=== PATIENT | female | born 1990 | race Caucasian/White ===

== ENCOUNTER → 2018-05-08 | Outpatient (CLI) | payer BC | LOC: LABNPT 10:32 | PROVIDERS: ATTEND Obstetrics & Gynecology | DX: O14.03 Mild to moderate pre-eclampsia, third trimester (principal) | CPT/HCPCS: 82570; 84156 ==

== ENCOUNTER 2018-05-13 04:51 | Inpatient (IN) | payer BC ==
[2018-05-13] VITALS (50 sets, daily range): BP systolic 121–189; BP diastolic 57–119
[~2018-05-13] VITALS: Ht 165.1 cm; Wt 103.0 kg
--- NOTE | 2018-05-13 04:50 | NUR ---
JONATHAN VEE presented to unit via wheelchair from ED, accompanied by s/o, with c/o CONTRACTIONS. JONATHAN VEE weighed, gowned, voided, and to bed. EFHM and TOCO applied, VS taken. JONATHAN VEE oriented to bed controls, call light, TV, heat, and A/C controls.
[2018-05-13] MEDS ORDERED: D5 LR IV SOLUTION 1,000 ML IV ONE (05:04)
[2018-05-13] MEDS ORDERED: D5 LR IV SOLUTION 1,000 ML IV SCH (05:10)
--- OUTSIDE RECORDS SUMMARY | 2018-05-13 05:21 | XMS REPORT ---
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 Name Role Phone SUSY CHRIS Unavailable PROBLEMS Unknown Problems ALLERGIES No Information ENCOUNTERS Encounter Location Date Diagnosis [facility] [address] [facility] [id number] [address] Mar, Encounter for immunization Z23 IMMUNIZATIONS Vaccine Route Administration Date Status TDAP (BOOSTRIX) IM Intramuscular Apr 03, 2018 Administered SOCIAL HISTORY Never Assessed REASON FOR VISIT TDaP immunization Leo Parker PLAN OF CARE VITAL SIGNS MEDICATIONS Unknown Medications RESULTS No Results PROCEDURES Procedure Date Ordered Result Body Site TDAP (BOOSTRIX) Apr 03, 2018 SINGLE IMMUNIZATION ADMIN Apr 03, 2018 INSTRUCTIONS MEDICATIONS ADMINISTERED No Known Medications
--- OUTSIDE RECORDS SUMMARY | 2018-05-13 05:21 | XMS REPORT ---
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 Name Role Phone SUSY CHRIS Unavailable PROBLEMS Unknown Problems ALLERGIES No Information ENCOUNTERS Encounter Location Date Diagnosis [facility] [address] [facility] [id number] [address] Mar, [facility] [address] [facility] [id number] [address] Mar, Encounter for immunization Z23 IMMUNIZATIONS No Known Immunizations SOCIAL HISTORY Never Assessed REASON FOR VISIT Pt has a red swollen area on the right deltoid where she received her TDAP injection, told pt to ice the area. Hans an outline around the area and told pt to monitor the area and call me if she started developing a fever or the redness extents outside the outlined area, Pt voiced understanding- Lata Stephens RN PLAN OF CARE VITAL SIGNS MEDICATIONS Unknown Medications RESULTS No Results PROCEDURES No Known procedures INSTRUCTIONS MEDICATIONS ADMINISTERED No Known Medications
[2018-05-13 05:44] LABS: BASOPHILS % (AUTO) 0 % (0-10); EOSINOPHILS # (AUTO) 0.1 10^3/uL (0.0-0.3); EOSINOPHILS % (AUTO) 1 % (0-10); HEMATOCRIT 37 % (35-52); HEMOGLOBIN 12.3 G/DL (11.5-16.0); LYMPHOCYTES # (AUTO) 1.8 X 10^3 (1.0-4.0); LYMPHOCYTES % (AUTO) 18 % (12-44); MEAN CORPUSCULAR HEMOGLOBIN 30 PG (25-34); MEAN CORPUSCULAR HGB CONC 33 G/DL (32-36); MEAN CORPUSCULAR VOLUME 89 FL (80-99); MEAN PLATELET VOLUME 10.7 FL (7.4-10.4); MONOCYTES # (AUTO) 0.8 X 10^3 (0.0-1.0); MONOCYTES % (AUTO) 8 % (0-12); NEUTROPHILS # (AUTO) 7.2 X 10^3 (1.8-7.8); NEUTROPHILS % (AUTO) 73 % (42-75); PLATELET COUNT 204 10^3/uL (130-400); RED BLOOD COUNT 4.16 10^6/uL (4.35-5.85); RED CELL DISTRIBUTION WIDTH 15.1 % (10.0-14.5); WHITE BLOOD COUNT 9.9 10^3/uL (4.3-11.0)
[2018-05-13] MEDS ORDERED: CATHETER FLUSH 10 ML SYR IV SCH (06:00)
[2018-05-13] MEDS ORDERED: LIDOCAINE/EPI 2% 1:200,00 (XYLOCAINE) 10 ML VIAL ONE (06:50)
[2018-05-13] MEDS ORDERED: OXYTOCIN/NORMAL SALINE 500 ML IV ONE (06:51)
--- NOTE | 2018-05-13 07:31 | History & Physical ---
History and Physical Date Seen by Provider: May 13, 2018 Time Seen by Provider: 07:29 This patient is a 26-year-old A2 white female with an EDC of 1 1219 putting her now 39 weeks gestation. She is admitted with complaint of regular painful contractions pain and pressure. Her cervix was 6 centimeters dilated on admission. She denies rupture membranes or bleeding. She's had no problems with this . GBS culture after 35 weeks gestation was negative. Allergies are to sulfa which causes itching Medications are vitamins Medical social and surgical histories are per the antepartum record HEENT exam is normal Neck is supple no lymphadenopathy no thyromegaly Abdomen is gravid soft nontender nondistended Extremities show no clubbing cyanosis. Pelvic exam is pending monitor shows contractions every 2 minutes with normal heart rate pattern Laboratory Tests 05/13/18 05:35 Assessment and plan term at 39+ weeks' gestation in active labor. Plan is for expectant management with likely vaginal delivery 39 week gestation in spontaneous labor Allergies and Home Medications Allergies Coded Allergies: Sulfa (Sulfonamide Antibiotics) (Verified Allergy, Intermediate, HIVES, 05/13/18) Patient Home Medication List Home Medication List Reviewed: Yes Clinical Quality Measures DVT/VTE Risk/Contraindication: Risk Factor Score Per Nursin RFS Level Per Nursing on Admit: 2=Moderate HAYLEE MCKEON MD May 13, 2018 07:31
[2018-05-13] MEDS ORDERED: OXYTOCIN/NORMAL SALINE 500 ML IV SCH ×2 (09:56→14:39)
[2018-05-13] MEDS ORDERED: LIDOCAINE/EPI 2% 1:200,00 (XYLOCAINE) 10 ML VIAL INJ ONE (13:39)
[2018-05-13] MEDS ORDERED: WITCH HAZEL(TUCKS) 40 EA JAR ONE (14:35)
[2018-05-13] MEDS ORDERED: KETOROLAC 30 MG/ML VIAL ONE (14:35)
[2018-05-13] MEDS ORDERED: BENZOCAINE/MENTHOL (DERMOPLAST) 56 ML CAN TP ONE (14:35)
[2018-05-13] MEDS: BENZOCAINE/MENTHOL (DERMOPLAST) 56 ML CAN TP PRN (14:42)
[2018-05-13] MEDS: WITCH HAZEL(TUCKS) 40 EA JAR TOP PRN (14:43)
[2018-05-13] MEDS: KETOROLAC 30 MG/ML VIAL IV SCH ×2 (14:43→20:46)
[2018-05-13] MEDS ORDERED: oxyCODONE/APAP 5/325MG (PERCOCET 5) TABLET PO PRN (14:45)
[2018-05-13] MEDS ORDERED: TETANUS,DIPTH,PERTUSS P/F (BOOSTRIX) 0.5 ML VIAL IM ONE (14:45)
[2018-05-13] MEDS ORDERED: ONDANSETRON 4 MG/2 ML (SDV) Z0FRAN IVP PRN (14:45)
--- NOTE | 2018-05-13 16:00 | NUR ---
VSS. CARING FOR INFANT IN ROOM. FF U/2. VAG FLOW LT/MOD RUBRA.
--- NOTE | 2018-05-13 16:35 | NUR ---
FF U/2. VAG FLOW LT/MOD RUBRA. UP TO THE BATHROOM TO ATTEMPT TO VOID. PERICARE PERFORMED WITH NEW PAD AND UNDERWEAR APPLIED. FRESH GOWN. PREPARING TO TRANSFER TO ROOM. PT'S FOOD HERE.
--- NOTE | 2018-05-13 16:50 | NUR ---
TRANSFERRED VIA W/C TO ROOM 310 IN STABLE CONDITION ACC BY KATHLEEN PCT, PT FAMILY, AND CYNTHIA RN PUSHING OPEN CRIB WITH INFANT. ORIENTED TO SURROUNDINGS. CALL LIGHT OPERATION, ROOM SERVICE PROCEDURE. CALL LIGHT PLACED WITHIN REACH. IV PATENT. SITE CLEAR. FF U/2. VAG FLOW LT/MOD RUBRA. FAMILY AT BEDSIDE.
--- NOTE | 2018-05-13 17:45 | NUR ---
UP TO THE BATHROOM. VOIDED LARGE AMOUNT IN TOILET. PERICARE PERFORMED. DERMAPLAST SPRAY AND TUCKS APPLIED ALONG WITH ICE PACK. BACK TO BED WITHOUT PROBLEMS. LOTS OF FAMILY IN AND OUT TO SEE PT.
--- NOTE | 2018-05-13 18:05 | NUR ---
ISABELLA STACK ASSISTING WITH . ABLE TO ACHIEVE LATCH.
--- NOTE | 2018-05-13 19:10 | NUR ---
REPORT TO NEXT SHIFT.
--- NOTE | 2018-05-13 20:00 | NUR ---
Nurse at pt bedside for assessment. Pt. states that she is in little to no pain at this time. States that she does not want any pain meds other than her anti-inflammatory at this time. New ice pack given to pt. Pt bleeding checked. WNL's. 2008: Nurse helps to latch infant to breast at this time with shield.
[2018-05-13] MEDS ORDERED: OXYC1TAB87 PO (20:05)
[2018-05-13] MEDS ORDERED: IBUP-1780 PO (20:05)
[2018-05-13] MEDS ORDERED: DOCU100C37 PO (20:05)
--- NOTE | 2018-05-13 20:07 | Discharge Instructions ---
Discharge Instructions Discharge Medications New, Converted or Re-Newed RX: RX on Chart Patient Instructions Patient Instructions: As directed Return to The Hospital For: As directed Activity & Diet Discharge Diet: No Restrictions Activity as Tolerated: No Orders-Post D/C & Referrals Follow Up Appt: Call to make follow up appt. for patient in 4 weeks. Activity Per routine post vaginal delivery instructions. Diet as tolerated Patient may shower or tub bathe as desired. HAYLEE MCKEON MD May 13, 2018 20:06
[2018-05-13] MEDS: DOCUSATE SODIUM 100 MG (COLACE) CAP PO SCH (20:46)
--- NOTE | 2018-05-13 22:13 | OPERATIVE REPORT ---
DATE OF SERVICE: 05/13/2018 DELIVERY NOTE The patient delivered by term spontaneous vaginal delivery at 9:39 at 39 and 2/7 weeks gestation, a viable male with Apgars of 9 and 9 at 1 and 5 minutes respectively, weight of 8 pounds 9 ounces. time of 13:54 and a cord blood gas of 7.19. The maternal expulsive effort delivery of the head with quite a bit of difficulty over the perineum. There was significant turtling as a shoulder dystocia was anticipated and encountered. Personnel were on hand and placed to relieve the shoulder dystocia and that was done with Desiree and with suprapubic pressure from the patient's left lower quadrant to her right lower quadrant. The anterior shoulder rotated and released fairly easily after nuchal cord was slipped over the baby's head. The shoulders then delivered without difficulty. An episiotomy had been performed just prior to delivery of the head that extended to a fourth-degree tear. The was bulb suctioned on delivery and then the umbilical cord was doubly clamped, father cut the cord, the baby was passed to mom's abdomen. Infant moved all extremities, had excellent tone and reflexes and normal heart rate and was quickly pink on delivery. The cord bloods were obtained. The placenta was then delivered fairly spontaneously Noyola. It was normal with a 3-vessel cord. It was sent to pathology for permanent section. The cervix, rectum, perineum and vagina were examined and found to have sustained a fourth-degree extension of the episiotomy with an extension of the vaginal wall almost to the cervix posteriorly. The defects were repaired with a running lock suture in the posterior vaginal wall down to the level of the rectal defect. The rectum was then repaired in the usual manner with a suture of 3-0 Vicryl Rapide everting the rectum back into itself and then reimbricating with a second layer and then reapproximating both the internal anal sphincter and the external anal sphincter independently by restoring the sphincter capsules. The rectovaginal space was then obliterated with a running suture of 3-0 Vicryl Rapide and then the mucosa and perineal skin were repaired with additional suture of 3-0 Vicryl Rapide. Good reapproximation and good hemostasis was achieved. The patient tolerated the repair well, which had been performed under the local that was administered just prior to the delivery. Sponge and needle counts were correct on completion of the delivery and repair. Estimated blood loss was around 400 to 450 mL. The patient tolerated the delivery and the repair fairly well and remained in the LDR for recovery. The baby remained with the mom. Job ID: [id number] DocumentID: [id number] Dictated Date: 05/13/2018 14:39:38 Mid Wife Date: 05/13/2018 22:12:38 Dictated By: HAYLEE MCKEON MD
[2018-05-14 00:12] VITALS: BP 112/70
--- NOTE | 2018-05-14 03:15 | NUR ---
Nurse in to give pt's Tordol. Pt. sound asleep in bed with all lights off. asleep in open crib. Pt. wakes long enough to be given Tordol and rolls back over. No questions or concerns at this time.
[2018-05-14] MEDS: KETOROLAC 30 MG/ML VIAL IV SCH (03:19)
[2018-05-14 05:30] VITALS: BP 99/62
--- NOTE | 2018-05-14 07:15 | NUR ---
DR. MCKEON HERE TO SEE PT.
--- NOTE | 2018-05-14 07:26 | Progress Note-Standard ---
Standard Progress Note Progress Notes/Assess & Plan Date Seen by a Provider: May 14, 2018 Time Seen by a Provider: 07:26 Progress/Assessment & Plan This patient is without complaint. She is ambulating, voiding, tolerating oral intake well has good pain control. Vital Signs 05/13/18 05/14/18 05/14/18 13:45 00:12 05:30 Temp 97.9 Pulse 79 Resp 16 B/P (MAP) 99/62 (74) Pulse Ox 97 O2 Delivery Room Air O2 Flow Rate 15.00 Vital signs are stable. Patient is afebrile. Fundus is firm below the umbilicus and nontender. Extremities show no clubbing or cyanosis. There is no Homans sign. Assessment and plan day number 1 status post term spontaneous vaginal delivery doing well. Plan is for routine convalescence. They have discharge home tomorrow HAYLEE MCKEON MD May 14, 2018 07:26
[2018-05-14] MEDS ORDERED: IBUPROFEN 800 MG (MOTRIN) TAB PO ONE (07:55)
[2018-05-14 09:00] VITALS: BP 121/72
--- NOTE | 2018-05-14 09:00 | NUR ---
ARaleigh. ASSESSMENT PERFORMED. CARING FOR IN ROOM.
[2018-05-14] MEDS: DOCUSATE SODIUM 100 MG (COLACE) CAP PO SCH ×2 (09:25→21:12)
[2018-05-14] MEDS: IBUPROFEN 800 MG (MOTRIN) TAB PO SCH ×3 (09:26→21:12)
--- NOTE | 2018-05-14 12:00 | NUR ---
DOING WELL. STATES ARDON WHEN VOIDS R/T REPAIR. CONTINUES TO CARE FOR IN ROOM.
[2018-05-14 12:30] VITALS: BP 115/70
--- NOTE | 2018-05-14 14:30 | NUR ---
EATING STORK MEAL. VISITORS IN ROOM.
--- NOTE | 2018-05-14 15:00 | NUR ---
NURSERY NURSE HAS BEEN IN TO ASSIST WITH WELL NURSE.
[2018-05-14 17:12] VITALS: BP 123/66
--- NOTE | 2018-05-14 19:00 | NUR ---
AMBULATING IN THE ROSALES. MOVES WELL.
[2018-05-14 22:29] VITALS: BP 126/75
[2018-05-15] MEDS: IBUPROFEN 800 MG (MOTRIN) TAB PO SCH ×2 (02:56→09:30)
[2018-05-15 04:34] VITALS: BP 120/73
--- NOTE | 2018-05-15 07:30 | NUR ---
DR. MCKEON HERE TO SEE PT. PLAN FOR DISCHARGE TODAY.
--- NOTE | 2018-05-15 07:45 | Progress Note-Standard ---
Standard Progress Note Progress Notes/Assess & Plan Date Seen by a Provider: May 15, 2018 Time Seen by a Provider: 07:44 Progress/Assessment & Plan This patient is without complaint. She is ambulating, voiding, tolerating oral intake well has good pain control. Vital Signs 05/13/18 05/14/18 05/14/18 13:45 00:12 05:30 Temp 97.9 Pulse 79 Resp 16 B/P (MAP) 99/62 (74) Pulse Ox 97 O2 Delivery Room Air O2 Flow Rate 15.00 Vital signs are stable. Patient is afebrile. Fundus is firm below the umbilicus and nontender. Extremities show no clubbing or cyanosis. There is no Homans sign. Assessment and plan day number 1 status post term spontaneous vaginal delivery doing well. Plan is for routine convalescence. They have discharge home tomorrow May 15, 2018 Patient without complaint. She is ambulating, voiding, tolerating oral intake well has good pain control. Patient is requesting discharge home. Vital Signs 05/13/18 05/15/18 13:45 04:34 Temp 97.9 Pulse 86 Resp 16 B/P (MAP) 120/73 (89) Pulse Ox 98 O2 Delivery Room Air O2 Flow Rate 15.00 Vital signs are stable. Patient is afebrile. Fundus is firm below the umbilicus and nontender. Extremities show no clubbing cyanosis. There is no Homans sign. Assessment and plan term spontaneous vaginal delivery at 39 weeks gestation. Plan is for discharge home Final Diagnosis Term spontaneous vaginal delivery at 39 weeks gestation HAYLEE MCKEON MD May 15, 2018 07:45
[2018-05-15 09:00] VITALS: BP 114/75
--- NOTE | 2018-05-15 09:00 | NUR ---
A.M. ASSESSMENT COMPLETED. VSS. ANXIOUS TO GO HOME TODAY.
[2018-05-15] MEDS: DOCUSATE SODIUM 100 MG (COLACE) CAP PO SCH (09:29)
[2018-05-15] MEDS: WITCH HAZEL(TUCKS) 40 EA JAR TOP PRN (09:30)
[2018-05-15] MEDS: BENZOCAINE/MENTHOL (DERMOPLAST) 56 ML CAN TP PRN (09:30)
--- NOTE | 2018-05-15 10:00 | NUR ---
CARING FOR INFANT IN ROOM. GOOD INTERACTION NOTED.
--- NOTE | 2018-05-15 11:55 | NUR ---
DISCHARGE INSTRUCTIONS REVIEWED WITH COPY TO PT. RXS GIVEN. STATES UNDERSTANDING OF ALL INSTRUCTIONS AND NEED TO F/U SCHEDULED AND NEEDED. PREPARING TO BE DISMISSED.
--- NOTE | 2018-05-15 13:00 | NUR ---
INFANT. WANTS CAR SEAT INSTRUCTIONS. EMILEE INFORMED.
[2018-05-15 13:15] VITALS: BP 114/75
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
== END 2018-05-15 13:15 | disposition home or self-care (01) | DRG 768 ==
LOC: WSo 04:51 → LDRP 04:52 → WSo 05:14 → LDRP 05:15
PROVIDERS: ADMIT Obstetrics & Gynecology; ATTEND Obstetrics & Gynecology
PROC: 0DQP0ZZ Repair Rectum, Open Approach (ICD-10-PCS; principal; 2018-05-13)
PROC: 10E0XZZ Delivery of Products of Conception, External Approach (ICD-10-PCS; 2018-05-13)
DX: O66.0 Obstructed labor due to shoulder dystocia (principal); O69.81X0 Labor and delivery complicated by cord around neck, without compression, not applicable or unspecified; Z3A.39 39 weeks gestation of pregnancy; Z37.0 Single live birth; Z88.2 Allergy status to sulfonamides
CPT/HCPCS: 36415; 85025; 86850; 86900; 86901; 99212

== ENCOUNTER 2019-02-25 09:02 | Emergency (ER) | payer BC, OTHER ==
[~2019-02-25] VITALS: Ht 162.6 cm; Wt 80.5 kg
[~2019-02-25 09:02] MED LIST: DOCU100C37 PO; IBUP-1780 PO; OXYC1TAB87 PO
--- NOTE | 2019-02-25 09:17 | NUR ---
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 Dorr Operator states that no drug screen is needed, will send work comp form and visit summary with patient for company records. Registration informed that patient's visit will be work comp.
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
[2019-02-25 09:52] VITALS: BP 117/76
== END 2019-02-25 09:52 | disposition home or self-care (01) ==
LOC: EDUNIT# 09:02 → ER FS 09:05
DX: M79.18 Myalgia, other site (principal); R10.30 Lower abdominal pain, unspecified; R07.89 Other chest pain; Z88.2 Allergy status to sulfonamides; Z80.0 Family history of malignant neoplasm of digestive organs; V49.40XA Driver injured in collision with unspecified motor vehicles in traffic accident, initial encounter
CPT/HCPCS: 84703; 99283

== ENCOUNTER 2021-10-26 01:50 | Inpatient (IN) | payer BC ==
[2021-10-26] VITALS (9 sets, daily range): BP systolic 114–129; BP diastolic 59–79
[2021-10-26] MEDS ORDERED: LIDOCAINE/EPI 2% 1:200,00 (XYLOCAINE) 10 ML VIAL ONE (01:57)
[2021-10-26] MEDS ORDERED: D5 LR IV SOLUTION 1,000 ML IV ONE (01:57)
[2021-10-26] MEDS ORDERED: OXYTOCIN PRE-MIX DRIP 500 ML IV ONE (01:57)
--- NOTE | 2021-10-26 03:10 | History & Physical ---
History and Physical Date Seen by Provider: Oct 26, 2021 Time Seen by Provider: 03:06 This patient is a 02-lrfw-cmuQgijard 2 para 1 female who presented in advanced labor with cervix dilated 8 cm and with a relatively strong urge to push.Her has been uncomplicated.At this point patient has now delivered/see delivery note. At the time of admission patient had been complaining ofIntermittent diarrhea through the day and intermittent contractions and pressure.She had contacted the office and is being given instructions that if her contractions continued to present to labor and deliveryApparent early her contractions wax and wane through the day and tellLate in the night when the contractions progressed she began feeling pressure and then became to labor and delivery. Patient's has been uncomplicated. Her GBS culture was negative. Allergies are to sulfa drugs Medications are vitamins Medical social and surgical histories are per the antepartum record HEENT exam is normal Neck is supple no lymphadenopathy no thyromegaly abdomen is gravid soft nonten siddhartha nondistended Extremities show no clubbing cyanosis. There is no Homans' sign. On my arrival patient cervix was completely dilated presenting part was the vertex at about the -1 station. She subsequently now has delivered. Assessment and plan Term advanced labor. Delivery was eminent and again at this point is already been accomplishedSee delivery note 39+ weeks gestation in advance spontaneous labor Allergies and Home Medications Allergies Coded Allergies: Sulfa (Sulfonamide Antibiotics) (Verified Allergy, Intermediate, HIVES, 05/13/18) Patient Home Medication List Home Medication List Reviewed: Yes Docusate Sodium (Docusate Sodium) 100 Mg Capsule, 100 MG PO BID Prescribed by: HAYLEE LIAO on 05/13/182004 Ibuprofen (Ibuprofen) 800 Mg Tablet, 800 MG PO Q6H Prescribed by: HAYLEE LIAO on 05/13/182004 Oxycodone HCl/Acetaminophen (Percocet 5-325 mg Tablet) 1 Each Tablet, 1 TAB PO Q4H PRN for PAIN-MODERATE Prescribed by: HAYLEE LIAO on 05/13/182004 HAYLEE MCKEON MD Oct 26, 2021 03:10
--- NOTE | 2021-10-26 03:14 | Discharge Inst-Surgical ---
Discharge Inst-Surgical Depart Medication/Instructions New, Converted or Re-Newed RX: Transmitted to Pharmacy Consults/Follow Up Patient Instructions: As directed Orders & Referrals Follow Up Appt: Call to make follow up appt. for patient in 4 weeks. Activity Per routine post vaginal delivery instructions. Prescriptions have been sent to patient's pharmacy from clinic prescriptions include Percocet Motrin and Colace Diet as tolerated Patient may shower or tub bathe as desired. Activity Activity as Tolerated: No Diet Discharge Diet: No Restrictions HAYLEE MCKEON MD Oct 26, 2021 03:14
[2021-10-26] MEDS ORDERED: oxyCODONE/APAP 5/325MG (PERCOCET 5) TABLET PO PRN (03:15)
[2021-10-26] MEDS ORDERED: TETANUS,DIPTH,PERTUSS P/F (BOOSTRIX) 0.5 ML VIAL IM ONE ×2 (03:15→16:30)
[2021-10-26] MEDS ORDERED: ONDANSETRON 4 MG/2 ML (SDV) Z0FRAN IVP PRN (03:15)
[2021-10-26] MEDS ORDERED: OXYTOCIN PRE-MIX DRIP 500 ML IV SCH (03:15)
[2021-10-26] MEDS ORDERED: KETOROLAC 30 MG/ML VIAL IVP SCH (03:15)
--- NOTE | 2021-10-26 03:17 | OB Labor & Delivery Record ---
Labor & Delivery This patient delivered at 39+ weeks gestation by term spontaneous vaginal delivery of viable female infant with Apgars of 8 and 9 at 1 and 5 respectively weight of 8 pounds 6 ounces time of 02 . Cord blood pH is pending. Patient delivered with no analgesiaOver a first-degree perineal laceration. The was bulb suctioned on completion of delivery. There was a relative shoulder dystocia encountered this primary due to the patient's relatively intense pain and her tendency to clench her pelvis while pushing.Desiree maneuver was employed delivery of the shoulders and completion of delivery was accomplished in less than a minute after delivery of the head. was bulb suction after completion of delivery umbilical cord when pulseless with doubly clampedAnd the father cut the cord. The baby was passed to mom's abdomen. Cord bloods were obtained the placenta delivered fairly promptly spontaneously Raquel it was normal with a three-vessel cord. Cervix vagina rectum perineum were examined and found intact except for a 2 cm first-degree perineal laceration primarily in the posterior fourchette this was repaired with a single suture of 3-0 Vicryl repeat. There was a small superficial abrasion superior to the urethra that was hemostatic and required no repair. Sponge needle counts were correct on completion of delivery repair blood loss was around 300 cc. Patient tolerated delivery well and remained in the LDR for recovery. Baby remained with mom. HAYLEE MCKEON MD Oct 26, 2021 03:17
[2021-10-26] MEDS ORDERED: D5 LR IV SOLUTION 1,000 ML IV SCH (03:30)
[2021-10-26] MEDS ORDERED: IBUPROFEN 800 MG (MOTRIN) TAB PO ONE (03:33)
[2021-10-26 03:36] LABS: BASOPHILS % (AUTO) 0 % (0-10); EOSINOPHILS # (AUTO) 0.1 10^3/uL (0.0-0.3); EOSINOPHILS % (AUTO) 1 % (0-10); HEMATOCRIT 38 % (35-52); HEMOGLOBIN 12.8 g/dL (11.5-16.0); LYMPHOCYTES # (AUTO) 1.5 10^3/uL (1.0-4.0); LYMPHOCYTES % (AUTO) 22 % (12-44); MEAN CORPUSCULAR HEMOGLOBIN 29 pg (25-34); MEAN CORPUSCULAR HGB CONC 34 g/dL (32-36); MEAN CORPUSCULAR VOLUME 86 fL (80-99); MONOCYTES # (AUTO) 0.8 10^3/uL (0.0-1.0); MONOCYTES % (AUTO) 11 % (0-12); NEUTROPHILS # (AUTO) 4.5 10^3/uL (1.8-7.8); NEUTROPHILS % (AUTO) 66 % (42-75); PLATELET COUNT 248 10^3/uL (130-400); WHITE BLOOD COUNT 6.9 10^3/uL (4.3-11.0)
[2021-10-26] MEDS: IBUPROFEN 800 MG (MOTRIN) TAB PO SCH ×4 (03:37→23:03)
[2021-10-26] MEDS ORDERED: IBUPROFEN 800 MG (MOTRIN) TAB PO SCH (06:00)
[2021-10-26] MEDS ORDERED: CATHETER FLUSH 10 ML SYR IV SCH (06:00)
--- NOTE | 2021-10-26 08:15 | Progress Note ---
Standard Progress Note Progress Notes/Assess & Plan Date Seen by a Provider: Oct 26, 2021 Time Seen by a Provider: 08:14 Progress/Assessment & Plan This patient is status post relatively precipitous term spontaneous vaginal delivery early hours this morning. She is doing well. Vital Signs Date Time Temp Pulse Resp B/P (MAP) Pulse Ox O2 Delivery O2 Flow Rate FiO2 10/26/21 04:02 89 127/79 (95) 10/26/21 03:40 68 124/66 (85) 10/26/21 03:18 70 121/67 (85) 10/26/21 03:06 75 121/63 (82) 10/26/21 01:53 36.0 73 20 128/67 (87) 100 Room Air Signs are stable. Patient is afebrile. Fundus is firm below the umbilicus and nontender Extremities show no clubbing cyanosis. There is no Homans' sign. Pelvic exam is deferred Assessment and plan by just a few hours 39-week spontaneous vaginal livery patient doing well will have routine convalescent care HAYLEE MCKEON MD Oct 26, 2021 08:15
[2021-10-26] MEDS: BENZOCAINE/MENTHOL (DERMOPLAST) 56 ML CAN TP PRN (08:34)
[2021-10-26] MEDS: DOCUSATE SODIUM 100 MG (COLACE) CAP PO SCH ×2 (08:34→21:05)
[2021-10-26] MEDS: WITCH HAZEL(TUCKS) 40 EA JAR TOP PRN (09:43)
[2021-10-26] MEDS ORDERED: MEASLES,MUMPS,RUBELLA 1 EA INJ SC ONE (16:30)
[2021-10-27 01:36] VITALS: BP 124/60
[2021-10-27 05:13] VITALS: BP 117/61
[2021-10-27] MEDS: IBUPROFEN 800 MG (MOTRIN) TAB PO SCH ×2 (05:13→11:15)
--- NOTE | 2021-10-27 08:33 | Progress Note ---
Standard Progress Note Progress Notes/Assess & Plan Date Seen by a Provider: Oct 27, 2021 Time Seen by a Provider: 08:32 Progress/Assessment & Plan This patient is status post relatively precipitous term spontaneous vaginal delivery early hours this morning. She is doing well. Vital Signs Date Time Temp Pulse Resp B/P (MAP) Pulse Ox O2 Delivery O2 Flow Rate FiO2 10/26/21 04:02 89 127/79 (95) 10/26/21 03:40 68 124/66 (85) 10/26/21 03:18 70 121/67 (85) 10/26/21 03:06 75 121/63 (82) 10/26/21 01:53 36.0 73 20 128/67 (87) 100 Room Air Signs are stable. Patient is afebrile. Fundus is firm below the umbilicus and nontender Extremities show no clubbing cyanosis. There is no Homans' sign. Pelvic exam is deferred Assessment and plan by just a few hours 39-week spontaneous vaginal livery patient doing well will have routine convalescent care October 27, 2021 Patient is without complaint. She is ambulating, voiding, tolerating oral intake well and has good pain control. Vital Signs Date Time Temp Pulse Resp B/P (MAP) Pulse Ox O2 Delivery O2 Flow Rate FiO2 10/27/21 05:13 36.2 75 18 117/61 (79) 98 Room Air 10/27/21 01:36 36.0 80 18 124/60 (81) 96 10/26/21 21:05 36.3 84 18 118/66 (83) 99 Room Air 10/26/21 16:30 36.5 80 18 114/59 (77) 97 Room Air 10/26/21 12:30 36.3 88 18 124/67 (86) 96 Room Air Vital signs are stable. Patient is afebrile. The abdomen is benign. The fundus is firm below the umbilicus and nontender. Extremities show no clubbing or cyanosis. There is no Homans' sign. Assessment and plan day #1 status post term spontaneous vaginal delivery doing well. Plan is for routine convalescent care Final Diagnosis 39-week spontaneous vaginal delivery HAYLEE MCKEON MD Oct 27, 2021 08:33
[2021-10-27] MEDS: DOCUSATE SODIUM 100 MG (COLACE) CAP PO SCH (09:38)
[2021-10-27] MEDS: BENZOCAINE/MENTHOL (DERMOPLAST) 56 ML CAN TP PRN (09:50)
[2021-10-27] MEDS: WITCH HAZEL(TUCKS) 40 EA JAR TOP PRN (09:50)
[2021-10-27 11:21] VITALS: BP 124/68
== END 2021-10-27 15:50 | disposition home or self-care (01) | DRG 807 ==
LOC: WSo 01:50 → LDRP 01:51 → WSo 02:10 → LDRP 02:10
PROVIDERS: ADMIT Obstetrics & Gynecology; ATTEND Obstetrics & Gynecology
PROC: 10E0XZZ Delivery of Products of Conception, External Approach (ICD-10-PCS; principal; 2021-10-26)
PROC: 0HQ9XZZ Repair Perineum Skin, External Approach (ICD-10-PCS; 2021-10-26)
DX: O66.0 Obstructed labor due to shoulder dystocia (principal); Z37.0 Single live birth; Z3A.39 39 weeks gestation of pregnancy; Z88.2 Allergy status to sulfonamides; O70.0 First degree perineal laceration during delivery; O71.82 Other specified trauma to perineum and vulva; O62.3 Precipitate labor; Z23 Encounter for immunization
CPT/HCPCS: 36415; 85025; 86780; 86850; 86900; 86901; 90707; 99212